=== PATIENT | female | born 1975 | race Caucasian/White ===

== ENCOUNTER 2019-05-24 12:59 | Outpatient (CLI) | payer BC, SELFPAY ==
--- NOTE | 2019-05-24 13:16 | XRR_ITS ---
PROCEDURE INFORMATION: Exam: XR Chest, 2 Views Exam date and time: 05/24/2019 1:33 PM Age: 43 years old Clinical indication: Cough and fever; Patient HX: Cough congestion fever; Additional info: Asthmatic bronchitis/cough TECHNIQUE: Imaging protocol: XR of the chest Views: Frontal and lateral upright views. COMPARISON: CR Chest 2 views* [id number] 04/09/2018 11:28 AM FINDINGS: Lungs: The lungs are clear bilaterally. The pulmonary vasculature is normal. Pleural space: No pleural effusion. No pneumothorax. Heart/Mediastinum: The heart is normal in size and contour. Mediastinum: Stable. Bones/joints: Mild rightward mid-lower thoracic spine curvature. XR/XR chest 2V* [id number] IMPRESSION: No acute cardiopulmonary abnormality identified.
== END 2019-05-24 13:00 | disposition home or self-care (01) ==
LOC: RAD 13:10
PROVIDERS: Family Provider Nurse Practitioner Family; PCP Nurse Practitioner Family; Visit Provider Nurse Practitioner Family
DX: J45.909 Unspecified asthma, uncomplicated (principal); R05 Cough
CPT/HCPCS: 71046

== ENCOUNTER → 2022-01-03 15:09 | Outpatient (BNVA) | payer OTHER, SELFPAY | PROVIDERS: Family Provider Nurse Practitioner Family; PCP Nurse Practitioner Family; Visit Provider Nurse Practitioner Family | DX: R30.0 Dysuria (principal); N39.0 Urinary tract infection, site not specified; N32.89 Other specified disorders of bladder; J40 Bronchitis, not specified as acute or chronic; M25.50 Pain in unspecified joint | CPT/HCPCS: 81003 ==

== ENCOUNTER → 2022-02-28 10:48 | Outpatient (BNVA) | payer OTHER, SELFPAY | PROVIDERS: Family Provider Nurse Practitioner Family; PCP Nurse Practitioner Family; Visit Provider Nurse Practitioner Family | DX: M25.50 Pain in unspecified joint (principal); M54.2 Cervicalgia; F41.8 Other specified anxiety disorders; M54.9 Dorsalgia, unspecified; G89.29 Other chronic pain | CPT/HCPCS: 80053; 85651; 86038; 86140; 86200; 86431 ==

== ENCOUNTER → 2022-05-27 12:00 | Outpatient (BNVA) | payer OTHER, SELFPAY | PROVIDERS: Family Provider Nurse Practitioner Family; Visit Provider Internal Medicine | DX: R76.8 Other specified abnormal immunological findings in serum (principal); M25.50 Pain in unspecified joint; R53.83 Other fatigue | CPT/HCPCS: 36415; 82533; 82550; 82784; 83516; 84439; 84443; 85651; 86160; 86162; 86200; 86235; 86255; 86376; 86431; 86704; 86803; 87340 ==

== ENCOUNTER → 2022-06-10 10:28 | Outpatient (BNVA) | payer OTHER, SELFPAY | PROVIDERS: Family Provider Nurse Practitioner Family; PCP Nurse Practitioner Family; Visit Provider Internal Medicine | DX: R76.8 Other specified abnormal immunological findings in serum (principal); L40.9 Psoriasis, unspecified | CPT/HCPCS: 72202; 73120 ==

== ENCOUNTER → 2022-09-30 14:50 | Outpatient (BNVA) | payer OTHER, SELFPAY | PROVIDERS: Family Provider Nurse Practitioner Family; PCP Nurse Practitioner Family; Visit Provider Internal Medicine | DX: R76.8 Other specified abnormal immunological findings in serum (principal); R53.83 Other fatigue; M25.50 Pain in unspecified joint | CPT/HCPCS: 36415; 80053; 81001; 83520; 85025; 85651; 86140 ==

== ENCOUNTER → 2023-01-09 11:17 | Outpatient (BNVA) | payer OTHER, SELFPAY | PROVIDERS: Family Provider Nurse Practitioner Family; PCP Nurse Practitioner Family; Visit Provider Nurse Practitioner Family | DX: R55 Syncope and collapse (principal); R42 Dizziness and giddiness; J32.0 Chronic maxillary sinusitis; J30.2 Other seasonal allergic rhinitis; J40 Bronchitis, not specified as acute or chronic | CPT/HCPCS: 80053; 82785; 84443; 86003 ==

== ENCOUNTER 2023-05-06 08:55 | Outpatient (CLI) | payer OTHER, SELFPAY ==
[2023-05-06 09:43] LABS: Basophils % 0.4 %; Eosinophils # 0.1 10^3/uL (0.0-0.8); Eosinophils % 0.8 %; Hematocrit 42.1 % (36-47); Lymphocytes % 26.8 %; Mean Corpuscular HGB Conc 32.5 g/dL (30-55); Mean Corpuscular Hemoglobin 28.5 pg (27-33); Mean Corpuscular Volume 87.5 fl (85-98); Mean Platelet Volume 8.9 fL (7.4-10.4); Monocytes # 0.5 10^3/uL (0.2-0.9); Monocytes % 6.7 %; Neutrophils # 4.75 10^3/uL (1.8-7.7); Neutrophils % 65.2 %; Nucleated Red Blood Cells % 0 %; Platelet Count 308 10^3/cmm (157-399); Red Blood Count 4.81 10^6/uL (3.85-5.65); Red Cell Distribution Width 12.8 % (12.1-15.1)
[2023-05-06 09:54] LABS: Add Urine Microscopic? YES; Bilirubin Urine Neg (Negative); Blood Urine Neg (Negative); Glucose Urine UA Norm (Normal); Ketones Urine Negative (Negative); Leukocyte Esterase Urine Negative (Negative); Nitrate Urine Negative (Negative); Protein Urine Neg (Negative); Urine Appearance SL Hazy (CLEAR); Urine Color Yellow (Yellow); Urobilinogen Urine Norm (Negative); pH Urine 6 (5-7)
[2023-05-06 10:01] LABS: Estmated Average Glucose 103; Hemoglobin A1C 5.2 % (4.0-6.0)
[2023-05-06 10:20] LABS: Erythrocyte Sedimentation Rate 20 mm/hr (0-15)
[2023-05-06 10:28] LABS: 25 Hydroxy Vitamin D 46 ng/mL (30-100); Alanine Aminotransferase 26 U/L (0-33); Albumin Level 4.2 g/dL (3.5-5.2); Alkaline Phosphatase 62 U/L (35-105); Anion Gap 15.2 (5-19); Aspartate Amino Transferase 25 U/L (0-32); Blood Urea Nitrogen 11 mg/dL (6-20); Calcium 8.8 mg/dL (8.5-10.5); Carbon Dioxide 24 mmol/L (22-29); Chloride 104 mmol/L (98-107); Chol HDL Ratio 3.14 mg/dL (0.0-4.40); Cholesterol 232 mg/dL (0-200); Globulin 3.7 g/dL (1.3-4.6); Glomerular Filtration Rate 106.7 mL/min (90-130); Glucose 96 mg/dL (65-115); HDL Cholesterol 74 mg/dL (60-100); LDL Cholesterol Calculated 122 mg/dL (50-129); LDL HDL Ratio 1.65 RATIO (0.00-3.22); Magnesium 2.1 mg/dL (1.7-2.3); Osmolality Calculated 287 mOsm/kg (285-295); Phosphorus 2.4 mg/dL (2.5-4.5); Potassium 4.2 mmol/L (3.5-5.1); Sodium 139 mmol/L (136-145); Thyroid Stimulating Hormone 1.29 uIU/mL (0.27-4.20); Total Bilirubin 0.4 mg/dL (0.15-1.2); Total Protein 7.9 g/dL (6.6-8.7); Triglycerides 180 mg/dL (0-150)
[2023-05-06 10:32] LABS: WBC Urine 0-4 /hpf (0-5)
[2023-05-06 10:33] LABS: Add Urine Culture? No; Bacteria Urine TRACE /hpf; Mucus Urine 1+ /hpf
== END 2023-05-06 08:56 | disposition home or self-care (01) ==
LOC: LAB 08:57
PROVIDERS: Family Provider Nurse Practitioner Family; PCP Nurse Practitioner Family; Visit Provider Internal Medicine
DX: J32.0 Chronic maxillary sinusitis (principal); R55 Syncope and collapse; M25.50 Pain in unspecified joint; R76.8 Other specified abnormal immunological findings in serum; R53.83 Other fatigue
CPT/HCPCS: 36415; 80053; 80061; 81001; 82306; 82533; 83036; 83735; 84100; 84443; 85025; 85651; 86140

== ENCOUNTER → 2023-09-24 10:47 | Outpatient (BNVA) | payer OTHER, SELFPAY | PROVIDERS: Family Provider Nurse Practitioner Family; PCP Nurse Practitioner Family; Visit Provider Nurse Practitioner Family | DX: F41.9 Anxiety disorder, unspecified (principal); F32.A Depression, unspecified; M77.00 Medial epicondylitis, unspecified elbow; B35.1 Tinea unguium; M77.01 Medial epicondylitis, right elbow | CPT/HCPCS: 80053; 84443; 85025 ==

== ENCOUNTER 2024-04-23 15:06 | Outpatient (CLI) | payer OTHER, SELFPAY ==
--- NOTE | 2024-04-23 15:11 | XRR_ITS ---
PROCEDURE INFORMATION: Exam: XR Chest Exam date and time: 04/23/2024 3:29 PM Age: 48 years old Clinical indication: Shortness of breath; Patient HX: SOB xfew years, recent congestion and tightness in chest; Additional info: Abnormal chest xray TECHNIQUE: Imaging protocol: Radiologic exam of the chest. Views: 2 views. COMPARISON: CR XR chest 2V* [id number] 05/24/2019 1:27 PM FINDINGS: Lungs: Unremarkable. No consolidation. Pleural spaces: Unremarkable. No pleural effusion. No pneumothorax. Heart/Mediastinum: Unremarkable. No cardiomegaly. Bones/joints: Unremarkable. XR/XR chest 2V* [id number] IMPRESSION: No acute findings.
== END 2024-04-23 15:07 | disposition home or self-care (01) ==
LOC: RAD 15:08
PROVIDERS: Family Provider Nurse Practitioner Family; PCP Internal Medicine; Visit Provider Internal Medicine
DX: R93.89 Abnormal findings on diagnostic imaging of other specified body structures (principal); R06.02 Shortness of breath
CPT/HCPCS: 71046

== ENCOUNTER 2024-12-29 07:37 | Outpatient (CLI) | payer OTHER, SELFPAY ==
--- NOTE | 2024-12-29 07:47 | US_ITS ---
WS: [id number] RIGHT UPPER QUADRANT ULTRASOUND HISTORY: EPIGASTRIC PAIN COMPARISON: 06/22/2007 Liver: 14.6 cm in length. Normal size liver and echogenicity. No bile duct dilatation or mass. Portal Vein: Normal hepatopetal flow with monophasic waveform. Gallbladder: Normally distended gallbladder with no stones or wall thickening. CBD: 0.4 cm Pancreas: Completely obscured by bowel gas. Right kidney: 9.9 cm in length. Normal size and echogenicity. No hydronephrosis or mass. Aorta and IVC: Unremarkable abdominal aorta and IVC. No ascites. US/US abdomen limited [id number] IMPRESSION: Normal right upper quadrant ultrasound.
== END 2024-12-29 07:38 | disposition home or self-care (01) ==
PROVIDERS: PCP Internal Medicine; Visit Provider Internal Medicine
DX: R10.13 Epigastric pain (principal)
CPT/HCPCS: 76705

== ENCOUNTER 2025-01-19 08:09 | Outpatient (CLI) | payer OTHER, SELFPAY ==
--- NOTE | 2025-01-19 08:13 | NM_ITS ---
WS: [id number] NUCLEAR MEDICINE HIDA SCAN WITH GALLBLADDER EJECTION FRACTION HISTORY: RUQ PAIN COMPARISON: Abdomen ultrasound 12/29/2024 TECHNIQUE: The patient was intravenously injected with 7.8 mCi of TC99m Mebrofenin. Immediate imaging over the right upper quadrant was followed by 5 minute image and additional images for a total of 60 minutes. Normal uptake of radiotracer throughout the liver. Activity identified in the gallbladder at 15 minutes and well distended by 60 minutes. Activity in the proximal small bowel was seen by 60 minutes. Good washout of the radiotracer from the liver by 60 minutes. The patient then drank 8 ounces of Ensure Plus. Ejection fraction at 60 minutes was 97%. Normal GB ejection fraction is 35-75%. Post fatty meal symptoms: None. NM/NM hepatobiliary w phar* [id number] IMPRESSION: 1. Normal HIDA scan. 2. Normal gallbladder ejection fraction.
== END 2025-01-19 08:10 | disposition home or self-care (01) ==
LOC: RAD 08:10
PROVIDERS: PCP Internal Medicine; Visit Provider Internal Medicine
DX: R10.11 Right upper quadrant pain (principal)
CPT/HCPCS: 78227; A9537